=== PATIENT | female | born 1965 | race Hispanic/Latino ===

== ENCOUNTER 2024-07-29 14:37 | Emergency (ER) | payer OTHER ==
[2024-07-29] MEDS ORDERED: HYDROcodone/Acetaminophen 5/325 mg Tablet ONE (15:56)
[2024-07-29 17:11] LABS: #Basophils 0.08 10x3/uL (0.0-0.2); %Basophils 0.9 % (0.0-1.0); %Eosinophils 2.7 % (0.0-10.0); %Lymphocytes 22.9 % (21.0-51.0); %Monocytes 6.7 % (0.0-10.0); %Neutrophils 66.4 % (42.0-75.0); Hemoglobin 12.1 g/dL (12.0-16.0); Mean Corpuscular HGB CONC 32.7 g/dL (32.0-36.0); Mean Corpuscular Hemoglobin 30.2 pg (27.0-31.0); Mean Corpuscular Volume 92.3 fL (78.0-98.0); Platelet Count 332 10x3/uL (130-400); RBC Distribution Width 13.2 % (11.5-14.5); Red Blood Cell (RBC) Count 4.01 mill/uL (4.20-5.40)
[2024-07-29 17:24] LABS: Calc. Creatinine Clearance 0 mL/min (70-130); Estimated GFR 106
[2024-07-29 17:27] LABS: ALT (SGPT) 23 U/L (8-55); AST (SGOT) 27 U/L (5-34); Albumin 4.3 g/dL (3.5-5.0); Alkaline Phosphatase 75 U/L (40-110); Anion Gap 16 mmol/L (10-20); BUN (Urea Nitrogen) 4 mg/dL (9.8-20.1); Bilirubin, Total 0.3 mg/dL (0.2-1.2); CK (CPK) 81 U/L (29-168); Calcium 9.5 mg/dL (7.8-10.44); Carbon Dioxide 22 mmol/L (22-29); Chloride 101 mmol/L (98-107); Globulin 4.1 g/dL (2.4-3.5); Glucose 98 mg/dL (70-105); Potassium 3.5 mmol/L (3.5-5.1); Protein, Total 8.4 g/dL (6.0-8.3); Sodium 135 mmol/L (136-145)
== END 2024-07-29 17:33 | disposition home or self-care (01) ==
LOC: ERS 14:37
DX: S52.502A Unspecified fracture of the lower end of left radius, initial encounter for closed fracture (principal); F17.210 Nicotine dependence, cigarettes, uncomplicated; W19.XXXA Unspecified fall, initial encounter
CPT/HCPCS: 36415; 80053; 82550; 85025; 99283

== ENCOUNTER 2024-08-05 10:22 | Day surgery (SDC) | payer OTHER ==
[2024-08-03 13:48] VITALS: BMI 21.6
[2024-08-05] MEDS ORDERED: PROPOFOL 20 ML ONE (13:17)
[2024-08-05] MEDS ORDERED: Ondansetron PF 4 MG/2 ML Vial ONE (14:19)
[2024-08-05] MEDS ORDERED: Dexamethasone 4 mg/ml Vial ONE (14:19)
[2024-08-05] MEDS ORDERED: Lidocaine 2% PF 5 ML VIAL ONE (14:20)
[2024-08-05] MEDS ORDERED: CEFAZOLIN 2 GM VIAL ONE (14:22)
[2024-08-05] MEDS ORDERED: fentaNYL PF 100 MCG/2 ML SYRINGE ONE ×2 (14:41→16:13)
[2024-08-05] MEDS ORDERED: Esmolol 100 MG/10 ML VIAL ONE (15:00)
[2024-08-05] MEDS ORDERED: Dexmedetomidine 200 MCG/2 ML VIAL ONE (15:04)
[2024-08-05] MEDS ORDERED: Ketorolac Tromethamine 30 MG (1 mL) VIAL ONE (15:32)
[2024-08-05] MEDS ORDERED: Labetalol HCl 100 MG/20 ML VIAL ONE (16:01)
[2024-08-05] MEDS ORDERED: fentaNYL 50 mcg/mL 1 mL Vial ONE (16:20)
[2024-08-05] MEDS ORDERED: hydrALAZINE 20 MG/ML VIAL ONE (16:21)
[2024-08-05] MEDS ORDERED: HYDROcodone/Acetaminophen 5/325 mg Tablet ONE (16:48)
== END 2024-08-05 17:22 | disposition home or self-care (01) ==
LOC: SDC 10:22
PROVIDERS: ATTEND Orthopaedic Surgery
PROC: 0PSJ04Z Reposition Left Radius with Internal Fixation Device, Open Approach (ICD-10-PCS; principal; 2024-08-05)
DX: S52.572A Other intraarticular fracture of lower end of left radius, initial encounter for closed fracture (principal); S52.532A Colles' fracture of left radius, initial encounter for closed fracture; Z79.899 Other long term (current) drug therapy; W10.9XXA Fall (on) (from) unspecified stairs and steps, initial encounter
CPT/HCPCS: C1713; J0360; J1100; J1885; J2405; J2704; J3010